=== PATIENT | male | born 1945 | race Hispanic/Latino ===

== ENCOUNTER 2019-11-10 06:45 | Day surgery (SDC) | payer OTHER ==
[~2019-11-10] VITALS: Ht 182.9 cm; Wt 88.9 kg
[~2019-11-10 06:45] MED LIST: SODIUM CHLORIDE 0.9% 1000ML 1,000 ML IV ONE
[2019-11-10 07:16] VITALS: BP 160/79
[2019-11-10] MEDS ORDERED: ATOR10TA69 PO (07:20)
[2019-11-10] MEDS ORDERED: ALBU4TAB12 PO (07:20)
[2019-11-10] MEDS ORDERED: FLUT15.87 NS (07:20)
[2019-11-10] MEDS ORDERED: TAMS-1 PO (07:20)
[2019-11-10] MEDS ORDERED: IPRATROPIUM/ALBUTEROL SULFATE 3 ML SOLUTION IH ONE (07:37)
[2019-11-10] MEDS ORDERED: LIDOCAINE HCL 2% 20ML ONE (08:14)
[2019-11-10] MEDS ORDERED: PROPOFOL 10 MG/ML 20ML VIAL IV ONE ×2 (08:14→08:15)
[2019-11-10 08:38] VITALS: BP 145/77
[2019-11-10 08:45] VITALS: BP 152/78
[2019-11-10 08:50] VITALS: BP 158/73
[2019-11-10 09:19] LABS: BASOPHILS % (AUTO) 0.2 % (0.0-5.0); EOSINOPHILS % (AUTO) 0.8 % (0.0-8.0); HEMATOCRIT 38.6 % (42-54); LYMPHOCYTES % (AUTO) 19.2 % (21.0-51.0); MEAN CORPUSCULAR HEMOGLOBIN 28.9 pg (27.0-33.0); MEAN CORPUSCULAR HGB CONC 31.9 g/dL (32.0-36.0); MEAN CORPUSCULAR VOLUME 90.6 fL (79-99); MONOCYTES % (AUTO) 6.8 % (3.0-13.0); NEUTROPHILS % (AUTO) 72.3 % (40.0-77.0); PLATELET COUNT (AUTO) 243 K/uL (130-400); RED BLOOD CELL COUNT(AUTO) 4.26 MIL/uL (4.50-6.20); RED CELL DISTRIBUTION WIDTH 12.9 % (11.0-15.5); WHITE BLOOD COUNT (AUTO) 10.7 K/uL (4.8-10.8)
[2019-11-10 09:37] LABS: POTASSIUM 4.6 mmol/L (3.5-5.1)
[2019-11-10 09:40] LABS: ALBUMIN 3.2 g/dL (3.5-5.0); BILIRUBIN,TOTAL 0.9 mg/dL (0.2-1.0); TOTAL PROTEIN, SERUM 6.5 g/dL (6.0-8.3)
== END 2019-11-10 09:15 | disposition home or self-care (01) ==
LOC: DAH 06:45 → ENDO 06:45
PROVIDERS: ATTEND Internal Medicine Gastroenterology
DX: R19.5 Other fecal abnormalities (principal); C19 Malignant neoplasm of rectosigmoid junction; K57.30 Diverticulosis of large intestine without perforation or abscess without bleeding; E78.5 Hyperlipidemia, unspecified; N18.2 Chronic kidney disease, stage 2 (mild); F17.210 Nicotine dependence, cigarettes, uncomplicated; J44.9 Chronic obstructive pulmonary disease, unspecified; Z98.890 Other specified postprocedural states; Z79.899 Other long term (current) drug therapy; Z82.49 Family history of ischemic heart disease and other diseases of the circulatory system; Z83.3 Family history of diabetes mellitus; Z80.0 Family history of malignant neoplasm of digestive organs
CPT/HCPCS: 36415; 45380; 45381; 80053; 82378; 85025; 88305; 88360; 93005; 94640; A4215; A4221; A4222; A4223; A4606; A4620; A4663; J2704; J3490; J7030